=== PATIENT | male | born 1970 | race African-American/Black ===

== ENCOUNTER 2017-01-15 14:54 | Inpatient (IN) | payer MEDICARE, MEDICAID ==
[~2017-01-15] VITALS: Ht 170.2 cm; Wt 60.8 kg
[~2017-01-15 14:54] MED LIST: ASPI-1035 PO; BENA5TAB3 PO; FURO80TA87 PO; POTA8TAB4 PO; SPIR25TA4 PO
[2017-01-15] MEDS ORDERED: ONDANSETRON HCL 4MG/2ML VIAL IV ONE (15:45)
[2017-01-15] MEDS ORDERED: MORPHINE SULFATE 4 MG/ML CPJ (NOT FOR IM USE) IV ONE (15:45)
[2017-01-15 16:17] LABS: BASOPHILS % 0.7 % (0.0-2.0); EOSINOPHILS % 1.1 % (0.0-5.0); HEMATOCRIT. 35.1 % (42.0-52.0); HEMOGLOBIN. 11.5 g/dL (14.0-18.0); MEAN CORPUSCULAR HEMOGLOBIN 27.1 pg (28.0-32.0); MEAN CORPUSCULAR HGB CONC 32.9 g/dL (31.0-37.0); MEAN CORPUSCULAR VOLUME 82.3 fL (80.0-94.0); MEAN PLATELET VOLUME 9.3 fl (7.4-10.4); MONOCYTES % 9.1 % (2.0-8.0); NEUTROPHILS % 68.1 % (40.0-76.0); PLATELET 209 x1000/uL (130-400); RED BLOOD CELL COUNT 4.26 mill/uL (4.7-6.1); RED CELL DISTRIBUTION WIDTH 15.7 % (11.6-14.6); WHITE BLOOD COUNT 8.7 x1000/uL (4.5-11.0)
[2017-01-15 16:20] LABS: INR 1.4; PARTIAL THROMBOPLASTIN TIME 27.4 sec (24.0-34.0); PROTHROMBIN TIME 14.2 sec
[2017-01-15 16:27] LABS: ALANINE AMINOTRANSFERASE 55 IU/L (13-61); ALBUMIN 3.3 g/dL (3.4-5.0); ANION GAP 11; CALCIUM 8.5 mg/dL (8.5-10.1); CARBON DIOXIDE 27 mEq/L (21-32); CHLORIDE 103 mEq/L (98-107); INDEX HEMOLYSI 1 (1-3); INDEX ICTERIC 1 (1-4); INDEX LIPEMIC 1 (1-3); LIPASE 134 IU/L (73-393); TROPONIN I 0.05 ng/mL (0.00-0.04); UREA NITROGEN BLOOD 20 mg/dL (7-21); eGFR > 60 mL/min (>60)
[2017-01-15] MEDS ORDERED: PANTOPRAZOLE SODIUM 40 MG/VIAL IV ONE (16:30)
[2017-01-15] MEDS ORDERED: ACETAMINOPHEN 325MG TABLET PO PRN (21:30)
[2017-01-15] MEDS ORDERED: IPRATROPIUM/ALBUTEROL 0.5-3(2.5)MG/3ML NEB INH PRN (21:30)
[2017-01-15] MEDS ORDERED: MAGNESIUM/ALUMINUM HYDROXIDE/SIMETHICONE 30ML UDC PO PRN (21:30)
[2017-01-15] MEDS ORDERED: CLONIDINE 0.1MG TABLET PO PRN (21:30)
[2017-01-15] MEDS ORDERED: ENOXAPARIN 40MG/0.4ML SYR SUBCUT NR (22:00)
[2017-01-15] MEDS: ONDANSETRON HCL 4MG/2ML VIAL IV PRN (22:27)
[2017-01-15] MEDS: HYDROCODONE/ACETAMINOPHEN 5/325MG TABLET PO PRN (22:41)
[2017-01-15 23:51] LABS: CALCIUM 8.9 mg/dL (8.5-10.1); CARBON DIOXIDE 28 mEq/L (21-32); CHLORIDE 101 mEq/L (98-107); CREATINE KINASE 83 IU/L (39-308); CREATINE KINASE MB FRACTION < 0.5 ng/mL (0.5-3.6); INDEX HEMOLYSI 1 (1-3); INDEX ICTERIC 1 (1-4); INDEX LIPEMIC 1 (1-3); MAGNESIUM 2.1 mg/dL (1.8-2.4); TROPONIN I 0.05 ng/mL (0.00-0.04); UREA NITROGEN BLOOD 24 mg/dL (7-21); eGFR > 60 mL/min (>60)
[2017-01-16 00:08] LABS: ANION GAP 13
[2017-01-16] MEDS: ZOLPIDEM TARTRATE 5MG TABLET PO PRN ×2 (02:34→21:21)
[2017-01-16] MEDS ORDERED: CEPH500C2 PO (02:43)
[2017-01-16] MEDS ORDERED: EPLE25TA10 MT (02:43)
[2017-01-16] MEDS ORDERED: TRAM50TA PO (02:43)
[2017-01-16] MEDS ORDERED: ATOR20TA65 PO (02:43)
[2017-01-16] MEDS ORDERED: CARV25TA47 PO (02:43)
[2017-01-16] MEDS ORDERED: SACU1TAB7 PO (02:43)
[2017-01-16] MEDS ORDERED: SAW1CAPS PO (02:44)
[2017-01-16 08:03] LABS: BASOPHILS % 0.5 % (0.0-2.0); EOSINOPHILS % 1.6 % (0.0-5.0); HEMATOCRIT. 33.8 % (42.0-52.0); LYMPHOCYTES % 25.7 % (20.0-50.0); MEAN CORPUSCULAR HGB CONC 32.7 g/dL (31.0-37.0); MEAN CORPUSCULAR VOLUME 82.6 fL (80.0-94.0); MEAN PLATELET VOLUME 9.7 fl (7.4-10.4); MONOCYTES % 8.5 % (2.0-8.0); NEUTROPHILS % 63.7 % (40.0-76.0); PLATELET 191 x1000/uL (130-400); RED BLOOD CELL COUNT 4.09 mill/uL (4.7-6.1); RED CELL DISTRIBUTION WIDTH 15.9 % (11.6-14.6); WHITE BLOOD COUNT 7.7 x1000/uL (4.5-11.0)
[2017-01-16 08:30] LABS: CREATINE KINASE 75 IU/L (39-308); HDL CHOLESTEROL 25 mg/dL (40-59); INDEX HEMOLYSI 1 (1-3); INDEX ICTERIC 1 (1-4); INDEX LIPEMIC 1 (1-3); LDL CHOLESTEROL 59 mg/dL (5-100); TRIGLYCERIDE 46 mg/dL (0-150)
[2017-01-16 08:36] LABS: CREATINE KINASE MB FRACTION < 0.5 ng/mL (0.5-3.6); TROPONIN I 0.05 ng/mL (0.00-0.04)
[2017-01-16] MEDS ORDERED: PANTOPRAZOLE SODIUM 40 MG/VIAL IV SCH (09:00)
[2017-01-16 09:21] LABS: THYROID STIMULATING HORMONE < 0.01 uIU/mL (0.36-3.74)
[2017-01-16] MEDS ORDERED: BENAZEPRIL 5MG TABLET PO SCH (11:45)
[2017-01-16] MEDS ORDERED: SPIRONOLACTONE 25MG TABLET PO SCH (11:45)
[2017-01-16 12:59] LABS: T3 FREE 4.27 pg/ml (2.18-3.98); T4 FREE 1.9 ng/dL (0.76-1.46)
[2017-01-16 13:58] LABS: CLARITY URINE CLEAR (CLEAR); COLOR URINE DARK YELLOW (YELLOW); GLUCOSE URINE NEGATIVE (NEGATIVE); KETONES URINE TRACE (NEGATIVE); LEUKOCYTE ESTERASE URINE NEGATIVE (NEGATIVE); NITRITE URINE NEGATIVE (NEGATIVE); OCCULT BLOOD URINE NEGATIVE (NEGATIVE); PH URINE 5.5 (4.5-8.0); PROTEIN URINE TRACE (NEGATIVE); SPECIFIC GRAVITY URINE 1.027 (1.005-1.030)
[2017-01-16 14:27] LABS: *AMPHETAMINES SCREEN URINE NEGATIVE (NEGATIVE); *BARBITURATES SCREEN URINE NEGATIVE (NEGATIVE); *BENZODIAZEPINES SCREEN URINE NEGATIVE (NEGATIVE); *COCAINE SCREEN URINE NEGATIVE (NEGATIVE); CANNABINOID URINE SCREEN PRESUMTIVE POSITIVE (NEGATIVE); ECSTASY MDMA SCREEN URINE NEGATIVE (NEGATIVE); METHADONE URINE SCREEN NEGATIVE (NEGATIVE); OPIATES URINE SCREEN PRESUMTIVE POSITIVE (NEGATIVE); PHENCYCLIDINE URINE SCREEN NEGATIVE (NEGATIVE)
[2017-01-16] MEDS: POTASSIUM CHLORIDE 20MEQ TABLET SR PO SCH (14:34)
[2017-01-16] MEDS: FUROSEMIDE 40MG/4ML VIAL IVP SCH ×3 (14:34→20:22)
[2017-01-16] MEDS: ONDANSETRON HCL 4MG/2ML VIAL IV PRN (14:34)
[2017-01-16 14:46] LABS: BACTERIA URINE TRACE; RBC URINE NONE SEEN /hpf (0-2); WBC URINE 0-2 /hpf (0-2)
[2017-01-16 14:47] LABS: SQUAMOUS EPITHELIAL CELL URINE RARE /lpf (RARE/1+)
[2017-01-16] MEDS: ENOXAPARIN 40MG/0.4ML SYR SUBCUT SCH (20:23)
[2017-01-16] MEDS: ATORVASTATIN CALCIUM 20MG TABLET PO SCH (20:23)
[2017-01-16] MEDS: HYDROCODONE/ACETAMINOPHEN 5/325MG TABLET PO PRN (20:24)
[2017-01-16] MEDS: CARVEDILOL 6.25 MG TABLET PO SCH (20:24)
[2017-01-17] MEDS: HYDROCODONE/ACETAMINOPHEN 5/325MG TABLET PO PRN ×3 (04:47→22:39)
[2017-01-17 07:02] LABS: BASOPHILS % 0.6 % (0.0-2.0); HEMATOCRIT. 31.5 % (42.0-52.0); HEMOGLOBIN. 10.3 g/dL (14.0-18.0); LYMPHOCYTES % 28.1 % (20.0-50.0); MEAN CORPUSCULAR HEMOGLOBIN 26.7 pg (28.0-32.0); MEAN CORPUSCULAR HGB CONC 32.5 g/dL (31.0-37.0); MEAN PLATELET VOLUME 9.4 fl (7.4-10.4); MONOCYTES % 8.1 % (2.0-8.0); NEUTROPHILS % 61.2 % (40.0-76.0); PLATELET 176 x1000/uL (130-400); RED BLOOD CELL COUNT 3.84 mill/uL (4.7-6.1); RED CELL DISTRIBUTION WIDTH 15.3 % (11.6-14.6); WHITE BLOOD COUNT 7.4 x1000/uL (4.5-11.0)
[2017-01-17 07:31] LABS: ANION GAP 13; CALCIUM 8.7 mg/dL (8.5-10.1); CARBON DIOXIDE 26 mEq/L (21-32); CHLORIDE 103 mEq/L (98-107); INDEX HEMOLYSI 1 (1-3); INDEX ICTERIC 2 (1-4); INDEX LIPEMIC 1 (1-3); MAGNESIUM 2.1 mg/dL (1.8-2.4); UREA NITROGEN BLOOD 30 mg/dL (7-21); eGFR > 60 mL/min (>60)
[2017-01-17 07:33] LABS: NT PRO B-TYPE NATRIURETIC PEP 6420 pg/mL (5-125); TROPONIN I 0.05 ng/mL (0.00-0.04)
[2017-01-17] MEDS: CARVEDILOL 6.25 MG TABLET PO SCH ×2 (08:27→20:27)
[2017-01-17] MEDS: FUROSEMIDE 40MG/4ML VIAL IVP SCH (08:33)
[2017-01-17] MEDS: ENOXAPARIN 40MG/0.4ML SYR SUBCUT SCH (08:34)
[2017-01-17] MEDS: POTASSIUM CHLORIDE 20MEQ TABLET SR PO SCH (08:34)
[2017-01-17] MEDS: SPIRONOLACTONE 25MG TABLET PO SCH (08:34)
[2017-01-17] MEDS ORDERED: METOLAZONE 2.5MG TABLET PO NR (10:30)
[2017-01-17] MEDS: MORPHINE SULFATE 2 MG/ML CPJ (NOT FOR IM USE) IV PRN (12:03)
[2017-01-17] MEDS: ONDANSETRON HCL 4MG/2ML VIAL IV PRN ×2 (12:10→20:37)
[2017-01-17 14:51] LABS: HEPATITIS B SURFACE ANTIGEN NEGATIVE
[2017-01-17 15:16] LABS: HEPATITIS C VIR.AB 0.23 INDEXVAL (0.00-0.80)
[2017-01-17 15:17] LABS: HEPATITIS B CORE AB IGM NEGATIVE
[2017-01-17 15:19] LABS: HEPATITIS A AB IGM NEGATIVE (NEGATIVE)
[2017-01-17] MEDS: PANTOPRAZOLE 40MG DR TABLET PO SCH ×2 (15:37→20:37)
[2017-01-17] MEDS: FUROSEMIDE 100MG/10ML VIAL IVP SCH (18:28)
[2017-01-17] MEDS: ZOLPIDEM TARTRATE 5MG TABLET PO PRN (20:37)
[2017-01-17] MEDS: ATORVASTATIN CALCIUM 20MG TABLET PO SCH (20:37)
[2017-01-18] MEDS: FUROSEMIDE 100MG/10ML VIAL IVP SCH (06:17)
[2017-01-18] MEDS: PANTOPRAZOLE 40MG DR TABLET PO SCH (06:18)
[2017-01-18 06:22] LABS: BASOPHILS % 0.6 % (0.0-2.0); EOSINOPHILS % 1.3 % (0.0-5.0); HEMATOCRIT. 32.6 % (42.0-52.0); HEMOGLOBIN. 10.7 g/dL (14.0-18.0); LYMPHOCYTES % 23.3 % (20.0-50.0); MEAN CORPUSCULAR HEMOGLOBIN 26.9 pg (28.0-32.0); MEAN CORPUSCULAR HGB CONC 32.8 g/dL (31.0-37.0); MEAN PLATELET VOLUME 9.5 fl (7.4-10.4); MONOCYTES % 5.7 % (2.0-8.0); NEUTROPHILS % 69.1 % (40.0-76.0); PLATELET 211 x1000/uL (130-400); RED BLOOD CELL COUNT 3.97 mill/uL (4.7-6.1); RED CELL DISTRIBUTION WIDTH 15.2 % (11.6-14.6)
[2017-01-18 07:01] LABS: CALCIUM 8.8 mg/dL (8.5-10.1)
[2017-01-18] MEDS: CARVEDILOL 6.25 MG TABLET PO SCH ×2 (08:10→20:17)
[2017-01-18] MEDS: SPIRONOLACTONE 25MG TABLET PO SCH (08:46)
[2017-01-18] MEDS: POTASSIUM CHLORIDE 20MEQ TABLET SR PO SCH (08:46)
[2017-01-18] MEDS: HYDROCODONE/ACETAMINOPHEN 5/325MG TABLET PO PRN ×2 (08:52→20:16)
[2017-01-18] MEDS: ENOXAPARIN 40MG/0.4ML SYR SUBCUT SCH (17:18)
[2017-01-18] MEDS: ATORVASTATIN CALCIUM 20MG TABLET PO SCH (20:16)
[2017-01-18] MEDS: ZOLPIDEM TARTRATE 5MG TABLET PO PRN (20:49)
[2017-01-19 07:02] LABS: BASOPHILS % 0.5 % (0.0-2.0); EOSINOPHILS % 1.9 % (0.0-5.0); HEMATOCRIT. 33.2 % (42.0-52.0); MEAN CORPUSCULAR HEMOGLOBIN 27.1 pg (28.0-32.0); MEAN CORPUSCULAR HGB CONC 33.1 g/dL (31.0-37.0); MEAN PLATELET VOLUME 9.5 fl (7.4-10.4); MONOCYTES % 9.5 % (2.0-8.0); NEUTROPHILS % 67.1 % (40.0-76.0); PLATELET 203 x1000/uL (130-400); RED BLOOD CELL COUNT 4.05 mill/uL (4.7-6.1); RED CELL DISTRIBUTION WIDTH 15.6 % (11.6-14.6); WHITE BLOOD COUNT 7.9 x1000/uL (4.5-11.0)
[2017-01-19 07:49] LABS: MAGNESIUM 2.2 mg/dL (1.8-2.4)
[2017-01-19] MEDS: SPIRONOLACTONE 25MG TABLET PO SCH (08:46)
[2017-01-19] MEDS: POTASSIUM CHLORIDE 20MEQ TABLET SR PO SCH (08:46)
[2017-01-19] MEDS: FAMOTIDINE 20MG/2ML VIAL IV SCH ×2 (08:46→20:35)
[2017-01-19] MEDS: CARVEDILOL 6.25 MG TABLET PO SCH (08:53)
[2017-01-19] MEDS: FUROSEMIDE 40MG TABLET PO SCH ×2 (14:23→20:33)
[2017-01-19] MEDS: MORPHINE SULFATE 2 MG/ML CPJ (NOT FOR IM USE) IV PRN ×2 (15:30→22:15)
[2017-01-19] MEDS: ENOXAPARIN 40MG/0.4ML SYR SUBCUT SCH (17:44)
[2017-01-19] MEDS: ATORVASTATIN CALCIUM 20MG TABLET PO SCH (20:33)
[2017-01-19] MEDS: CARVEDILOL 25MG TABLET PO SCH (20:41)
[2017-01-19] MEDS: ONDANSETRON HCL 4MG/2ML VIAL IV PRN (22:14)
[2017-01-19] MEDS: ZOLPIDEM TARTRATE 5MG TABLET PO PRN (22:18)
[2017-01-20] MEDS: HYDROCODONE/ACETAMINOPHEN 5/325MG TABLET PO PRN ×3 (04:58→20:05)
[2017-01-20] MEDS: ONDANSETRON HCL 4MG/2ML VIAL IV PRN ×3 (04:59→20:05)
[2017-01-20 06:45] LABS: BASOPHILS % 0.3 % (0.0-2.0); EOSINOPHILS % 0.2 % (0.0-5.0); HEMATOCRIT. 35.8 % (42.0-52.0); HEMOGLOBIN. 11.8 g/dL (14.0-18.0); LYMPHOCYTES % 13.2 % (20.0-50.0); MEAN CORPUSCULAR VOLUME 81.7 fL (80.0-94.0); MEAN PLATELET VOLUME 9.4 fl (7.4-10.4); MONOCYTES % 7.9 % (2.0-8.0); NEUTROPHILS % 78.4 % (40.0-76.0); PLATELET 225 x1000/uL (130-400); RED BLOOD CELL COUNT 4.38 mill/uL (4.7-6.1); RED CELL DISTRIBUTION WIDTH 15.6 % (11.6-14.6); WHITE BLOOD COUNT 9.1 x1000/uL (4.5-11.0)
[2017-01-20 07:52] LABS: CALCIUM 9.2 mg/dL (8.5-10.1); MAGNESIUM 2.3 mg/dL (1.8-2.4)
[2017-01-20] MEDS: FAMOTIDINE 20MG/2ML VIAL IV SCH ×2 (08:32→20:05)
[2017-01-20] MEDS: POTASSIUM CHLORIDE 20MEQ TABLET SR PO SCH (08:32)
[2017-01-20] MEDS: FUROSEMIDE 40MG TABLET PO SCH (08:32)
[2017-01-20] MEDS: CARVEDILOL 25MG TABLET PO SCH ×2 (08:33→20:05)
[2017-01-20] MEDS ORDERED: BENAZEPRIL 5MG TABLET PO SCH (09:00)
[2017-01-20] MEDS ORDERED: ALBUTEROL (0.083%) 2.5MG/3ML NEB HHN PRN (12:30)
[2017-01-20] MEDS ORDERED: FUROSEMIDE 40MG/4ML VIAL IVP SCH (13:30)
[2017-01-20] MEDS: ENOXAPARIN 40MG/0.4ML SYR SUBCUT SCH (17:09)
[2017-01-20] MEDS: ENTRESTO 49/51MG PO SCH (17:09)
[2017-01-20] MEDS: ATORVASTATIN CALCIUM 20MG TABLET PO SCH (20:03)
[2017-01-20] MEDS: ZOLPIDEM TARTRATE 5MG TABLET PO PRN (20:21)
[2017-01-21 06:17] LABS: BASOPHILS % 0.3 % (0.0-2.0); EOSINOPHILS % 0.6 % (0.0-5.0); HEMATOCRIT. 34.4 % (42.0-52.0); HEMOGLOBIN. 11.1 g/dL (14.0-18.0); LYMPHOCYTES % 21.2 % (20.0-50.0); MEAN CORPUSCULAR HEMOGLOBIN 26.6 pg (28.0-32.0); MEAN CORPUSCULAR HGB CONC 32.1 g/dL (31.0-37.0); MEAN CORPUSCULAR VOLUME 82.8 fL (80.0-94.0); MEAN PLATELET VOLUME 9.6 fl (7.4-10.4); MONOCYTES % 9.3 % (2.0-8.0); NEUTROPHILS % 68.6 % (40.0-76.0); PLATELET 212 x1000/uL (130-400); RED BLOOD CELL COUNT 4.16 mill/uL (4.7-6.1); WHITE BLOOD COUNT 9.8 x1000/uL (4.5-11.0)
[2017-01-21 07:52] LABS: CALCIUM 8.9 mg/dL (8.5-10.1); MAGNESIUM 2.6 mg/dL (1.8-2.4)
[2017-01-21] MEDS: CARVEDILOL 25MG TABLET PO SCH (09:00)
[2017-01-21] MEDS: ENTRESTO 49/51MG PO SCH (09:00)
[2017-01-21] MEDS ORDERED: FUROSEMIDE 40MG/4ML VIAL IVP SCH (09:00)
[2017-01-21] MEDS: FAMOTIDINE 20MG/2ML VIAL IV SCH (09:57)
[2017-01-21] MEDS: POTASSIUM CHLORIDE 20MEQ TABLET SR PO SCH (09:58)
[2017-01-21 12:54] VITALS: BP 120/78
== END 2017-01-21 14:10 | disposition home or self-care (01) | DRG 291 ==
LOC: ER 19:48 → 8WST 21:54
PROVIDERS: ADMIT Internal Medicine; ATTEND Internal Medicine
DX: I13.0 Hypertensive heart and chronic kidney disease with heart failure and stage 1 through stage 4 chronic kidney disease, or unspecified chronic kidney disease (principal); I50.23 Acute on chronic systolic (congestive) heart failure; N17.9 Acute kidney failure, unspecified; E87.1 Hypo-osmolality and hyponatremia; E44.1 Mild protein-calorie malnutrition; I42.0 Dilated cardiomyopathy; Z95.810 Presence of automatic (implantable) cardiac defibrillator; D64.9 Anemia, unspecified; E03.9 Hypothyroidism, unspecified; E05.90 Thyrotoxicosis, unspecified without thyrotoxic crisis or storm; R16.0 Hepatomegaly, not elsewhere classified; I27.2 Other secondary pulmonary hypertension; I95.89 Other hypotension; N18.3 Chronic kidney disease, stage 3 (moderate); R26.9 Unspecified abnormalities of gait and mobility; M94.0 Chondrocostal junction syndrome [Tietze]; G47.00 Insomnia, unspecified; Z80.0 Family history of malignant neoplasm of digestive organs; Z80.42 Family history of malignant neoplasm of prostate
CPT/HCPCS: 36415; 71010; 74000; 76705; 78582; 80048; 80053; 80061; 80305; 81001; 82270; 82533; 82550; 82553; 83520; 83690; 83735; 83880; 84439; 84443; 84481; 84484; 85025; 85379; 85610; 85730; 86376; 86705; 86709; 86803; 87340; 87493; 93005; 93306; 93970; 96365; 96375; 96376; 97162; 97165; 99285; A9558; C9113; J1650; J1940; J2270; J2405; J3490; J7620

== ENCOUNTER 2017-06-30 20:01 | Inpatient (IN) | payer MEDICARE, MEDICAID ==
[~2017-06-30] VITALS: Ht 170.2 cm; Wt 66.7 kg
[~2017-06-30 20:01] MED LIST changes: -ASPI-1035 PO; +ASPI-1159 PO; +ATOR20TA65 PO; +CARV25TA47 PO; +CEPH500C2 PO; +EPLE25TA10 MT; +SACU1TAB7 PO; +SAW1CAPS PO; +TRAM50TA PO
[2017-06-30] MEDS ORDERED: AMIODARONE HCL 900 MG in DEXT 5% WATER 500 ML IV ONE (20:45)
[2017-06-30] MEDS ORDERED: SODIUM CHLORIDE 0.9% 1,000 ML IV NR (20:58)
[2017-06-30 21:46] LABS: BASOPHILS % 0.5 % (0.0-2.0); EOSINOPHILS % 2.5 % (0.0-5.0); HEMATOCRIT. 27.8 % (42.0-52.0); HEMOGLOBIN. 9.1 g/dL (14.0-18.0); LYMPHOCYTES % 14.8 % (20.0-50.0); MEAN CORPUSCULAR HEMOGLOBIN 26.8 pg (28.0-32.0); MEAN CORPUSCULAR VOLUME 81.9 fL (80.0-94.0); MEAN PLATELET VOLUME 8.6 fl (7.4-10.4); MONOCYTES % 13.2 % (2.0-8.0); PLATELET 220 x1000/uL (130-400); RED BLOOD CELL COUNT 3.39 mill/uL (4.7-6.1); RED CELL DISTRIBUTION WIDTH 16.7 % (11.6-14.6)
[2017-06-30] MEDS ORDERED: MORPHINE SULFATE 4 MG/ML CPJ (NOT FOR IM USE) IV SCH (21:51)
[2017-06-30 21:52] LABS: CHLORIDE 103 mEq/L (98-107)
[2017-06-30 21:53] LABS: INR 1.2; PROTHROMBIN TIME 12.7 sec (9.4-11.6)
[2017-06-30 21:59] LABS: CARBON DIOXIDE 23 mEq/L (21-32)
[2017-06-30 22:03] LABS: TROPONIN I 0.25 ng/mL (0.00-0.04)
[2017-06-30] MEDS ORDERED: POTASSIUM CHLORIDE 20MEQ TABLET SR PO ONE (22:15)
[2017-06-30] MEDS ORDERED: MAGNESIUM 1 G PREMIX 100 ML IV ONE ×2 (22:30→23:30)
[2017-06-30] MEDS ORDERED: ZOLPIDEM TARTRATE 5MG TABLET PO ONE (22:30)
[2017-07-01] VITALS (97 sets, daily range): BP systolic 55–114; BP diastolic 21–79
[2017-07-01] MEDS ORDERED: AMIODARONE HCL 900 MG in DEXT 5% WATER 500 ML IV PRN (01:15)
[2017-07-01] MEDS ORDERED: BUMETANIDE 1MG/4ML VIAL IV SCH (01:15)
[2017-07-01] MEDS ORDERED: ONDANSETRON HCL 4MG/2ML VIAL IV SCH (02:15)
[2017-07-01 07:16] LABS: BASOPHILS % 0.4 % (0.0-2.0); EOSINOPHILS % 0.5 % (0.0-5.0); HEMATOCRIT. 27.6 % (42.0-52.0); HEMOGLOBIN. 9.1 g/dL (14.0-18.0); LYMPHOCYTES % 8.4 % (20.0-50.0); MEAN CORPUSCULAR HEMOGLOBIN 27.1 pg (28.0-32.0); MEAN CORPUSCULAR VOLUME 82.1 fL (80.0-94.0); MEAN PLATELET VOLUME 8.6 fl (7.4-10.4); MONOCYTES % 11.4 % (2.0-8.0); NEUTROPHILS % 79.3 % (40.0-76.0); PLATELET 209 x1000/uL (130-400); RED BLOOD CELL COUNT 3.36 mill/uL (4.7-6.1)
[2017-07-01 08:31] LABS: CARBON DIOXIDE 22 mEq/L (21-32); CHLORIDE 103 mEq/L (98-107)
[2017-07-01 09:19] LABS: PHOSPHORUS 3.3 mg/dL (2.5-4.9)
[2017-07-01] MEDS: MAGNESIUM OXIDE 400MG TABLET PO SCH (11:39)
[2017-07-01] MEDS: APIXABAN 5 MG TABLET PO SCH ×2 (11:39→17:25)
[2017-07-01] MEDS: HYDROCODONE/APAP 7.5/325MG 1 TAB TABLET PO PRN ×2 (11:40→19:26)
[2017-07-01] MEDS: ONDANSETRON HCL 4MG/2ML VIAL IV PRN (17:25)
[2017-07-01] MEDS ORDERED: DOCUSATE SODIUM 250MG CAPSULE PO PRN (18:00)
[2017-07-01] MEDS: AMIODARONE HCL 900 MG in DEXT 5% WATER 482 ML IV PRN (19:26)
[2017-07-01] MEDS: ATORVASTATIN CALCIUM 20MG TABLET PO SCH (21:36)
[2017-07-01] MEDS: AMIODARONE HCL 200 MG TABLET PO SCH (21:37)
[2017-07-01] MEDS: LORAZEPAM 2MG/ML CPJ IV PRN (21:38)
[2017-07-02] VITALS (89 sets, daily range): BP systolic 57–122; BP diastolic 18–105
[2017-07-02] MEDS: ONDANSETRON HCL 4MG/2ML VIAL IV PRN ×2 (00:19→22:29)
[2017-07-02] MEDS: HYDROCODONE/APAP 7.5/325MG 1 TAB TABLET PO PRN ×3 (00:20→17:07)
[2017-07-02 04:40] LABS: BASOPHILS % 0.4 % (0.0-2.0); EOSINOPHILS % 0.9 % (0.0-5.0); HEMATOCRIT. 27.5 % (42.0-52.0); HEMOGLOBIN. 9.1 g/dL (14.0-18.0); LYMPHOCYTES % 11.3 % (20.0-50.0); MEAN CORPUSCULAR HEMOGLOBIN 27.4 pg (28.0-32.0); MEAN CORPUSCULAR VOLUME 82.7 fL (80.0-94.0); MEAN PLATELET VOLUME 8.8 fl (7.4-10.4); MONOCYTES % 11.1 % (2.0-8.0); NEUTROPHILS % 76.3 % (40.0-76.0); PLATELET 209 x1000/uL (130-400); RED BLOOD CELL COUNT 3.32 mill/uL (4.7-6.1); RED CELL DISTRIBUTION WIDTH 16.4 % (11.6-14.6)
[2017-07-02] MEDS: APIXABAN 5 MG TABLET PO SCH ×2 (08:01→17:06)
[2017-07-02] MEDS: MAGNESIUM OXIDE 400MG TABLET PO SCH (08:01)
[2017-07-02] MEDS: AMIODARONE HCL 200 MG TABLET PO SCH ×2 (08:02→22:29)
[2017-07-02] MEDS ORDERED: FUROSEMIDE 80MG TABLET PO SCH (09:00)
[2017-07-02] MEDS: MILRINONE 20MG-DEXT 5% PREMIX 100 ML IV PRN (12:09)
[2017-07-02] MEDS: ATORVASTATIN CALCIUM 20MG TABLET PO SCH (22:29)
[2017-07-02] MEDS: LORAZEPAM 2MG/ML CPJ IV PRN (22:29)
[2017-07-03] VITALS (93 sets, daily range): BP systolic 66–113; BP diastolic 26–86
[2017-07-03] MEDS: AMIODARONE HCL 900 MG in DEXT 5% WATER 482 ML IV PRN ×2 (01:00→06:55)
[2017-07-03] MEDS: HYDROCODONE/APAP 7.5/325MG 1 TAB TABLET PO PRN ×2 (05:48→10:57)
[2017-07-03] MEDS: APIXABAN 5 MG TABLET PO SCH ×2 (08:46→16:31)
[2017-07-03] MEDS: MAGNESIUM OXIDE 400MG TABLET PO SCH (08:46)
[2017-07-03] MEDS: AMIODARONE HCL 200 MG TABLET PO SCH ×2 (08:47→21:05)
[2017-07-03 14:10] LABS: HEMOGLOBIN. 8.3 g/dL (14.0-18.0); MEAN CORPUSCULAR HEMOGLOBIN 27.5 pg (28.0-32.0); MEAN CORPUSCULAR VOLUME 81.7 fL (80.0-94.0); MEAN PLATELET VOLUME 8.9 fl (7.4-10.4); PLATELET 173 x1000/uL (130-400); RED BLOOD CELL COUNT 3.01 mill/uL (4.7-6.1); RED CELL DISTRIBUTION WIDTH 15.9 % (11.6-14.6)
[2017-07-03 14:15] LABS: HEMATOCRIT. 24.6 % (42.0-52.0)
[2017-07-03 14:39] LABS: PLATELET ESTIMATE NORMAL
[2017-07-03] MEDS: ONDANSETRON HCL 4MG/2ML VIAL IV PRN (16:31)
[2017-07-03] MEDS: LORAZEPAM 2MG/ML CPJ IV PRN (18:11)
[2017-07-03] MEDS: MILRINONE 20MG-DEXT 5% PREMIX 100 ML IV PRN (18:43)
[2017-07-03] MEDS: ATORVASTATIN CALCIUM 20MG TABLET PO SCH (21:04)
[2017-07-04] VITALS (69 sets, daily range): BP systolic 54–117; BP diastolic 21–73
[2017-07-04] MEDS: LORAZEPAM 2MG/ML CPJ IV PRN ×2 (00:13→05:54)
[2017-07-04] MEDS: HYDROCODONE/APAP 7.5/325MG 1 TAB TABLET PO PRN (02:47)
[2017-07-04] MEDS: AMIODARONE HCL 900 MG in DEXT 5% WATER 482 ML IV PRN ×2 (06:51→09:01)
[2017-07-04 08:35] LABS: HEMATOCRIT. 24.1 % (42.0-52.0); HEMOGLOBIN. 8.2 g/dL (14.0-18.0); MEAN CORPUSCULAR HEMOGLOBIN 27.8 pg (28.0-32.0); MEAN CORPUSCULAR VOLUME 82.3 fL (80.0-94.0); MEAN PLATELET VOLUME 8.5 fl (7.4-10.4); PLATELET 181 x1000/uL (130-400); RED BLOOD CELL COUNT 2.93 mill/uL (4.7-6.1); RED CELL DISTRIBUTION WIDTH 15.7 % (11.6-14.6)
[2017-07-04] MEDS: MAGNESIUM OXIDE 400MG TABLET PO SCH (08:37)
[2017-07-04] MEDS: APIXABAN 5 MG TABLET PO SCH ×2 (08:37→17:05)
[2017-07-04] MEDS: AMIODARONE HCL 200 MG TABLET PO SCH (08:37)
[2017-07-04 09:25] LABS: PLATELET ESTIMATE NORMAL
[2017-07-04 11:53] LABS: BG BASE EXCESS -2.9 mmol/L (-2.0-2.0); BG DEOXYHEMOGLOBIN 8.3 % (0.0-5.0); BG FRACTION INSPIRED OXYGEN 21; BG HCO3 ACT 20.7 mmol/L (22.0-26.0); BG METHEMOGLOBIN 0.1 % (0.0-1.5); BG OXYGEN SATURATION 91.6 % (92.0-98.5); BG OXYHEMOGLOBIN 90.6 % (94.0-97.0); BG PCO2 31.3 mmHg (35.0-45.0); BG PH 7.439 (7.350-7.450); BG PO2 67.1 mmHg (75.0-100.0); BG SAMPLE SITE LEFT BRACHIAL; BG TOTAL HEMOGLOBIN 8.4 g/dL (12.0-18.0); BG VENT MODE ROOM AIR
[2017-07-04] MEDS ORDERED: DOCUSATE SODIUM 100MG CAPSULE PO PRN (13:24)
== END 2017-07-04 20:00 | disposition short-term general hospital (02) | DRG 291 ==
LOC: ER 21:29 → CVICU 21:36 → EDBEDREQ 21:38 → EDBEDREQTM 21:38 → ENRESERV 22:31
PROVIDERS: ADMIT Hospitalist; ATTEND Hospitalist
DX: I13.0 Hypertensive heart and chronic kidney disease with heart failure and stage 1 through stage 4 chronic kidney disease, or unspecified chronic kidney disease (principal); N17.0 Acute kidney failure with tubular necrosis; E46 Unspecified protein-calorie malnutrition; I27.20 Pulmonary hypertension, unspecified; I95.9 Hypotension, unspecified; I24.9 Acute ischemic heart disease, unspecified; E87.1 Hypo-osmolality and hyponatremia; E83.42 Hypomagnesemia; I42.0 Dilated cardiomyopathy; I50.23 Acute on chronic systolic (congestive) heart failure; I50.22 Chronic systolic (congestive) heart failure; T82.120A Displacement of cardiac electrode, initial encounter; I48.0 Paroxysmal atrial fibrillation; N18.9 Chronic kidney disease, unspecified; Z95.810 Presence of automatic (implantable) cardiac defibrillator; D64.9 Anemia, unspecified; E78.5 Hyperlipidemia, unspecified; E87.6 Hypokalemia; I25.10 Atherosclerotic heart disease of native coronary artery without angina pectoris; I44.7 Left bundle-branch block, unspecified; Z88.9 Allergy status to unspecified drugs, medicaments and biological substances; Z68.23 Body mass index [BMI] 23.0-23.9, adult
CPT/HCPCS: 36415; 36600; 71010; 80048; 80053; 80076; 82375; 82805; 83605; 83735; 83880; 84100; 84484; 85025; 85610; 86850; 86900; 86920; 93005; 96365; 96366; 96368; 96375; 99291; J0282; J2060; J2260; J2270; J2405; J3475; J3490; J7042; J7060